=== PATIENT | female | born 1970 | race Caucasian/White ===

== ENCOUNTER 2017-05-03 13:56 | Outpatient (CLI) | payer OTHER | END 2017-05-03 13:57 | disposition home or self-care (01) | LOC: BICMAMMO 13:56 | PROVIDERS: ATTEND Family Medicine | DX: Z12.31 Encounter for screening mammogram for malignant neoplasm of breast (principal); Z80.3 Family history of malignant neoplasm of breast | CPT/HCPCS: 77063; 77067 ==

== ENCOUNTER 2018-03-01 17:03 | Emergency (ER) | payer OTHER ==
[~2018-03-01 17:03] MED LIST: Iopamidol 370 76% 100 ML VIAL ONE
[2018-03-01] MEDS ORDERED: Morphine 4 MG/ML VIAL ONE (17:41)
[2018-03-01 17:46] LABS: Bilirubin Negative (Negative); Blood, Urine Negative (Negative); Clarity Clear (Clear); Glucose, Urine (Dipstick) 100 mg/dL (Negative); Leukocyte Negative (Negative); Nitrite Negative (Negative); Protein, Urine (Dipstick) Trace mg/dL (Neg-Trace); pH, Urine 6.5 (5.0-9.0)
[2018-03-01 17:59] LABS: ALT (SGPT) 42 U/L (8-55); AST (SGOT) 22 U/L (5-34); Albumin 4.6 g/dL (3.5-5.0); Alkaline Phosphatase 68 U/L (40-150); Anion Gap 16 mmol/L (10-20); BUN (Urea Nitrogen) 11 mg/dL (7.0-18.7); Bilirubin, Total 0.7 mg/dL (0.2-1.2); Calc. Creatinine Clearance 0 mL/min (70-130); Calcium 9.5 mg/dL (7.8-10.44); Carbon Dioxide 21 mmol/L (22-29); Chloride 106 mmol/L (98-107); Estimated GFR-MDRD Greater than 90; Glucose 139 mg/dL (70-105); Potassium 3.9 mmol/L (3.5-5.1); Protein, Total 7.6 g/dL (6.0-8.3); Sodium 139 mmol/L (136-145)
[2018-03-01 18:03] LABS: Band 7 % (5-11); Hemoglobin 14.9 g/dL (12.0-16.0); Lymphocytes 28 % (21-51); MDiff Complete? YES; Mean Corpuscular HGB CONC 33.4 g/dL (32.0-36.0); Mean Corpuscular Hemoglobin 30.1 pg (27.0-31.0); Mean Corpuscular Volume 90.1 fL (78.0-98.0); Monocytes 3 % (0-10); Neutrophil 60 % (42-75); Platelet Count 287 thou/uL (130-400); Platelet Morphology Comment Appears Adequate; RBC Distribution Width 11.6 % (11.5-14.5); Reactive Lymphocytes 2 % (0-10); Red Blood Cell (RBC) Count 4.97 mill/uL (4.20-5.40)
[2018-03-01] MEDS ORDERED: Ketorolac Tromethamine 30 MG/ML VIAL ONE (19:07)
--- NOTE | 2018-03-01 19:43 | ULT ---
PELVIC SONOGRAM TRANSABDOMINAL AND TRANSVAGINAL IMAGING WITH DUPLEX EVALUATION 03/01/18 HISTORY: Right pelvic pain. FINDINGS: Urinary bladder is decompressed. The uterus is surgically absent. Physiologic amount of free fluid is apparent within the pelvis. Right ovary measures up to 6.3 cm with a bilobed cystic structure 3.6 cm greatest diameter. This has been seen on CT back to 2016. Good color and spectral doppler flow within the ovary. Left ovary is 2.4 cm with good color and spectral doppler flow. IMPRESSION: Chronic complex cystic lesion of the right adnexa appears stable compared to CTs back to 2016. Possib le endometrioma. Status post hysterectomy. POS: BST
--- NOTE | 2018-03-01 20:44 | CT ---
CT ABDOMEN WITH CONTRAST CT PELVIS WITH CONTRAST: DATE: 03/01/18 at 8:03 p.m. HISTORY: 47-year-old female with right abdominal pain for three days. COMPARISON: 12/30/15. TECHNIQUE: IV injection of iodinated contrast media: Isovue 370 Oral contrast media: Administered FINDINGS: Enlarged liver with diffusely low attenuation consistent with fatty liver. Hyperdense approximately 1 x 0.8 cm lesion in hepatic segment 7 at the dome of the right lobe of the liver appears slightly les s prominent than on the prior study. The left lobe of the liver extends far to the left upper quadran t, wrapping itself around the spleen. This component of the liver contains another small focal hyperd ense lesion which is unchanged since the previous study. No portal vein thrombosis. No new hepatic le sions. Bilateral kidneys, abdominal aorta, pancreas, adrenals, spleen, urinary bladder, and appendix are normal. No small bowel dilation. No colonic diverticulitis. No ascites or pneumoperitoneum. Complex multiloculated right adnexal multichambered low attenuation intrapelvic mass measures approxi mately 5.5 x 4.5 x 5 cm in aggregate. The largest cystic component is approximately 4 x 4 x 4.5 cm, a nd has a density of approximately 15 HU. The configuration is different from 2015, but the overall si ze of the entire mass has not greatly increased since 2016. IMPRESSION: 1. Moderately large right complex multichambered adnexal cystic mass, which could be endometrio ma or hemorrhagic ovarian cysts. 2. Hepatic steatosis and hepatomegaly. 3. At least two small hyperdense enhancing hepatic lesions, which have not increased in size sin ce 2016. 4. Normal appendix. JOHAN Ojeda POS: MARCELINO
== END 2018-03-01 21:32 | disposition home or self-care (01) ==
LOC: SCSER 17:03
DX: R10.31 Right lower quadrant pain (principal); R10.11 Right upper quadrant pain; E11.9 Type 2 diabetes mellitus without complications; I10 Essential (primary) hypertension; Z79.899 Other long term (current) drug therapy; Z79.84 Long term (current) use of oral hypoglycemic drugs
CPT/HCPCS: 74177; 76856; 80053; 81003; 85025; 96374; 96375; J1885; J2270

== ENCOUNTER 2018-05-28 09:42 | Outpatient (CLI) | payer OTHER ==
--- NOTE | 2018-05-28 11:36 | MMO ---
Bilateral MAMMO Bilat Screen [facility]. CLINICAL HISTORY: Patient is 47 years old and is seen for screening. The patient has the following family history of breast cancer: maternal grandmother. The patient has no personal history of cancer. VIEWS: The views performed were: bilateral craniocaudal with tomosynthesis and bilateral mediolateral oblique with tomosynthesis. FILMS COMPARED: The present examination has been compared to prior imaging studies performed at [facility] on 02/20/2014, 03/27/2015, 04/22/2016 and 05/03/2017, and at [facility] on 10/10/2008 and 07/12/2011. MAMMOGRAM FINDINGS: There are scattered fibroglandular densities. There are no suspicious masses, suspicious calcifications, or new areas of architectural distortion. IMPRESSION: THERE IS NO MAMMOGRAPHIC EVIDENCE OF MALIGNANCY. A ROUTINE FOLLOW-UP MAMMOGRAM IN 1 YEAR IS RECOMMENDED. THE RESULTS OF THIS EXAM WERE SENT TO THE PATIENT. ACR BI-RADS Category 1 - Negative MAMMOGRAPHY NOTE: 1. A negative mammogram report should not delay a biopsy if a dominant of clinically suspicious mass is present. 2. Approximately 10% to 15% of breast cancers are not detected by mammography. 3. Adenosis and dense breasts may obscure an underlying neoplasm.
== END 2018-05-28 09:43 | disposition home or self-care (01) ==
LOC: BICMAMMO 09:42
PROVIDERS: ATTEND Family Medicine
DX: Z12.31 Encounter for screening mammogram for malignant neoplasm of breast (principal); Z80.3 Family history of malignant neoplasm of breast
CPT/HCPCS: 77063; 77067

== ENCOUNTER 2019-08-29 08:28 | Outpatient (CLI) | payer OTHER ==
--- NOTE | 2019-08-29 10:38 | MMO ---
Bilateral MAMMO Bilat Screen [facility]. CLINICAL HISTORY: Patient is 48 years old and is seen for screening. The patient has the following family history of breast cancer: maternal grandmother. The patient has no personal history of cancer. VIEWS: The views performed were: bilateral craniocaudal with tomosynthesis and bilateral mediolateral oblique with tomosynthesis. FILMS COMPARED: The present examination has been compared to prior imaging studies performed at [facility] on 03/27/2015, 04/22/2016, 05/03/2017 and 05/28/2018. This study has been interpreted with the assistance of computer-aided detection. MAMMOGRAM FINDINGS: There are scattered fibroglandular densities. There are no suspicious masses, suspicious calcifications, or new areas of architectural distortion. IMPRESSION: THERE IS NO MAMMOGRAPHIC EVIDENCE OF MALIGNANCY. A ROUTINE FOLLOW-UP MAMMOGRAM IN 1 YEAR IS RECOMMENDED. THE RESULTS OF THIS EXAM WERE SENT TO THE PATIENT. ACR BI-RADS Category 1 - Negative MAMMOGRAPHY NOTE: 1. A negative mammogram report should not delay a biopsy if a dominant of clinically suspicious mass is present. 2. Approximately 10% to 15% of breast cancers are not detected by mammography. 3. Adenosis and dense breasts may obscure an underlying neoplasm. Reported by: KATHY PEREIRA MD Electonically Signed: [id number]
== END 2019-08-29 08:29 | disposition home or self-care (01) ==
LOC: BICMAMMO 08:28
PROVIDERS: ATTEND Family Medicine
DX: Z12.31 Encounter for screening mammogram for malignant neoplasm of breast (principal); Z80.3 Family history of malignant neoplasm of breast
CPT/HCPCS: 77063; 77067

== ENCOUNTER 2020-11-18 08:54 | Outpatient (CLI) | payer BC | END 2020-11-18 08:55 | disposition home or self-care (01) | LOC: BICMAMMO 08:54 | PROVIDERS: ATTEND Family Medicine | DX: Z12.31 Encounter for screening mammogram for malignant neoplasm of breast (principal) | CPT/HCPCS: 77063; 77067 ==

== ENCOUNTER 2022-02-24 14:39 | Outpatient (CLI) | payer BC | END 2022-02-24 14:40 | disposition home or self-care (01) | LOC: BICMAMMO 14:39 | DX: Z12.31 Encounter for screening mammogram for malignant neoplasm of breast (principal); Z80.3 Family history of malignant neoplasm of breast | CPT/HCPCS: 77063; 77067 ==